=== PATIENT | male | born 1950 | race Caucasian/White ===

== ENCOUNTER → 2023-02-05 | Outpatient (CLI) | payer MEDICARE, OTHER | LOC: COL.PUL 01-30 08:50 | DX: R06.02 Shortness of breath (principal) ==

== ENCOUNTER → 2023-02-08 | Outpatient (CLI) | payer MEDICARE, OTHER | LOC: COL.PUL 09:20 | DX: R06.02 Shortness of breath (principal) | CPT/HCPCS: J7674 ==